=== PATIENT | female | born 1960 | race Caucasian/White ===

== ENCOUNTER 2018-10-28 09:19 | Emergency (ER) | payer SELFPAY ==
[~2018-10-28] VITALS: Ht 162.6 cm; Wt 68.0 kg
[~2018-10-28 09:19] MED LIST: COZAAR50 MG PO; SUPRAX400 MG PO; ULTRAM50 MG; Z.0.SERTRALINE HCL10 PO; Z.0.VALTREX500 MG PO
[2018-10-28 09:51] LABS: CLARITY,URINE HAZY (CLEAR); COLOR,URINE BROWN (YELLOW); LEUKOCYTE ESTERASE ,URINE 2+ (NEGATIVE); NITRITE,URINE POSITIVE (NEGATIVE); PROTEIN,URINE DIPSTICK 2+ (NEGATIVE)
[2018-10-28 09:52] LABS: BILIRUBIN,URINE NEGATIVE (NEGATIVE); KETONES,URINE NEGATIVE (NEGATIVE); URINE UROBILINOGEN 0.2 mg/dL (0.2 - 1)
[2018-10-28 10:00] LABS: BACTERIA,URINE FEW /HPF; EPITHELIAL CELLS,URINE RARE /LPF; RBC,URINE >50 /HPF (0-5)
[2018-10-28] MEDS ORDERED: CEFTRIAXONE SOD 1 GM/NS 50 ML 50 ML IV ONE (10:00)
[2018-10-28 10:36] LABS: BASOPHILS % 0.4 % (0.0-1.0); EOSINOPHILS # (AUTO) 0.1 (0.0-0.4); EOSINOPHILS % 1.1 % (0.0-6.0); HEMATOCRIT 35.4 % (34.2-44.1); HEMOGLOBIN 11.8 g/dL (12.0-16.0); LYMPHOCYTES # (AUTO) 1.6 (1.0-3.2); LYMPHOCYTES % 16.8 % (18.0-39.1); MEAN CORPUSCULAR HGB CONC 33.3 g/dL (31-35); MEAN CORPUSCULAR VOLUME 83.9 fL (81-99); MONOCYTES # (AUTO) 0.7 (0.2-0.8); MONOCYTES % 7.4 % (4.4-11.3); NEUTROPHILS # (AUTO) 7.2 (2.1-6.9); NEUTROPHILS % 73.9 % (38.7-80.0); PLATELET COUNT 136 x10e3/uL (140-360); RED BLOOD COUNT 4.22 x10e6/uL (3.6-5.1); RED CELL DISTRIBUTION WIDTH 13.1 % (11.7-14.4)
[2018-10-28 10:57] LABS: ALBUMIN 4.4 g/dL (3.5-5.0); ALBUMIN/GLOBULIN RATIO 1.7 (0.8-2.0); ANION GAP 15.2 mmol/L (8-16); CREATININE, SERUM 1.16 mg/dL (0.57-1.11); POTASSIUM 4.2 mmol/L (3.5-5.1)
[2018-10-28] MEDS ORDERED: MORPHINE SULFATE INJ 4 MG/ML INJ 1ML IV ONE (11:00)
[2018-10-28] MEDS ORDERED: ONDANSETRON HCL INJ 2MG/ML 2ML 2 MG/ML VIAL IV ONE (11:00)
--- NOTE | 2018-10-28 11:19 | NUR ---
WALKING ROUNDS WITH FERNANDEZ REYNA. REPORT RECEIVED. PATIENT CARE ASSUMED
--- NOTE | 2018-10-28 11:25 | Diagnostic Imaging Report ---
EXAMINATION: CT of the abdomen and pelvis without contrast. TECHNIQUE: Spiral CT images of the abdomen and pelvis were performed from the lung bases to the lesser trochanters. No intravenous contrast was given per renal stone protocol. Coronal and sagittal reformatted images were obtained. COMPARISON: None. CLINICAL HISTORY:Bilateral flank pain, hematuria. Patient also reports history of cholecystectomy and back surgery DISCUSSION: ABSENCE OF INTRAVENOUS CONTRAST DECREASES SENSITIVITY FOR DETECTION OF FOCAL LESIONS AND VASCULAR PATHOLOGY. ABDOMEN/PELVIS: LOWER THORAX: Patchy, rounded consolidation with surrounding groundglass opacity in the right lung base with adjacent calcification (series 3 image 11). Linear scar or fibrotic change/atelectasis in the lingula. HEPATOBILIARY:No focal hepatic lesion or intrahepatic biliary ductal dilatation. The gallbladder has been removed with metallic clips in the gallbladder fossa. SPLEEN: No splenomegaly. PANCREAS: No focal masses or ductal dilatation. ADRENALS: No adrenal nodules. KIDNEYS/URETERS: Punctate nonobstructing right upper pole renal calculus seen on series 3 image 45. 3 mm nonobstructing left upper pole renal calculus seen on series 3 image 46. Punctate nonobstructing left renal calculus seen on series 3 image 56. No hydronephrosis. No gross renal mass lesion. Subcentimeter left angiomyolipoma versus invagination of renal sinus fat. No ureteral or bladder calculi. PELVIC ORGANS/BLADDER: The urinary bladder is incompletely distended but otherwise unremarkable. The uterus is anteflexed and appears normal. No adnexal mass. PERITONEUM/RETROPERITONEUM: No ascites. No pneumoperitoneum. LYMPH NODES: No pelvic sidewall, retroperitoneal or mesenteric lymphadenopathy. VESSELS: Limited evaluation without intravenous contrast. Atherosclerotic calcification of the abdominal aorta and branch vessels without aneurysmal dilatation. GI TRACT: The large bowel is notable for scattered diverticula along the course of the descending and sigmoid colon without wall thickening or adjacent inflammatory change. The appendix is normal. The stomach is collapsed with prominence of the rugal folds. No small bowel dilatation to suggest obstruction. BONES AND SOFT TISSUES: Small fat-containing umbilical hernia. Otherwise no focal soft tissue abnormalities. No osseous destructive lesions. Multilevel degenerative disc changes and facet arthropathy of the lumbar spine. Postsurgical changes at L4. IMPRESSION: Punctate bilateral nonobstructing renal calculi. Large bowel diverticulosis without evidence of diverticulitis. Nodular consolidation and groundglass opacity in the right lower lobe is likely infectious or inflammatory in nature. A follow-up CT scan of the chest without contrast in 6-8 weeks is suggested to document resolution. Signed by: Dr. Farhat Fraga M.D. on 10/28/2018 11:22 AM
[2018-10-28] MEDS ORDERED: MACROBID 100 M100 MG PO (12:07)
[2018-10-28 12:34] VITALS: BP 128/81
== END 2018-10-28 12:40 | disposition home or self-care (01) ==
LOC: ER 09:19
DX: M54.5 Low back pain (principal); N30.91 Cystitis, unspecified with hematuria
CPT/HCPCS: 36415; 74176; 80053; 81001; 85025; 87086; 87186; 99284; J0696; J2270; J2405

== ENCOUNTER → 2025-07-12 | Day surgery (SDC) | payer BC, OTHER ==
[2025-07-10 10:41] LABS: BASOPHILS % 0.5 % (0.0-1.0); EOSINOPHILS % 2.3 % (0.0-6.0); LYMPHOCYTES % 28.1 % (18.0-39.1); MONOCYTES % 9.5 % (4.4-11.3); NEUTROPHILS % 59.3 % (38.7-80.0); RED CELL DISTRIBUTION WIDTH 13.4 % (11.7-14.4)
[2025-07-10 11:03] LABS: INR 0.99
[2025-07-10 11:07] LABS: EST GLOMERULAR FILTRATION RATE 53.0 ML/MIN (>=60)
[~2025-07-12] MED LIST changes: +BIOTIN1 MG; +BUDESONIDE0.5 MG/2 M NEB; +CRESTOR40 MG PO; +CYCLOBENZAPRINE10 MG PO; +FENTANYL CITRATE/PF 100MCG/2 ML INJ ONE; +LEVOTHYROXINE50 MCG PO; +LIDOCAINE HCL 2% LOCAL INJ 5 ML SDV VIAL INJ ONE; +MACROBID 100 M100 MG PO; +MAGNESIUM100 MG; +MELATONIN3 MG PO; +METOCLOPRAMIDE HCL 10 MG/2ML VIAL ONE; +MIDAZOLAM HCL 2 MG/2 ML VIAL ONE; +MOUNJARO2.5 MG/0.5; +MULTI-VITAMIN1 EACH PO; +NEURONTIN100 MG PO; +ONDANSETRON HCL INJ 2MG/ML 2ML 2 MG/ML VIAL ONE; +ONDANSETRON ODT8 MG PO; +PANTOPRAZOLE SO40 MG PO; +PERCOCET 10-321 EACH PO; +POTASSIUM99 M1; +PROPOFOL IV EMULSION 10 MG/ML 20 ML VIAL ONE; +PROPOFOL IV EMULSION 50 ML IV ONE; +SENSIPAR30 MG PO; +SPIRONOLACTONE25 MG PO
[2025-07-12] MEDS: LACTATED RINGER'S 1,000 ML ONE (09:35)
[2025-07-12 11:22] VITALS: TEMP 98.7
[2025-07-12 11:45] VITALS: BP 90/50; PULSE 88; RESP 18; O2SAT 99
== END | disposition home or self-care (01) ==
LOC: OR 08:33
PROVIDERS: ATTEND Internal Medicine Gastroenterology
DX: K31.7 Polyp of stomach and duodenum (principal); K31.89 Other diseases of stomach and duodenum; K21.00 Gastro-esophageal reflux disease with esophagitis, without bleeding; K44.9 Diaphragmatic hernia without obstruction or gangrene; K63.3 Ulcer of intestine; K64.8 Other hemorrhoids; Z86.0100 Personal history of colon polyps, unspecified; I12.9 Hypertensive chronic kidney disease with stage 1 through stage 4 chronic kidney disease, or unspecified chronic kidney disease; N18.30 Chronic kidney disease, stage 3 unspecified; E03.9 Hypothyroidism, unspecified; G89.29 Other chronic pain; Z90.49 Acquired absence of other specified parts of digestive tract; Z79.890 Hormone replacement therapy; Z79.85 Long-term (current) use of injectable non-insulin antidiabetic drugs; Z88.5 Allergy status to narcotic agent; Z88.6 Allergy status to analgesic agent; Z01.810 Encounter for preprocedural cardiovascular examination; Z01.812 Encounter for preprocedural laboratory examination
CPT/HCPCS: 36415; 43239; 43251; 45380; 80048; 85025; 85610; 85730; 93005; J2003; J2250; J2405; J2470; J2704 ×2; J2765; J3010; J7121; 45378

== ENCOUNTER 2025-07-14 10:37 | Emergency (ER) | payer BC, OTHER ==
[~2025-07-14] VITALS: Ht 162.6 cm; Wt 56.7 kg
[~2025-07-14 10:37] MED LIST changes: -FENTANYL CITRATE/PF 100MCG/2 ML INJ ONE; -LIDOCAINE HCL 2% LOCAL INJ 5 ML SDV VIAL INJ ONE; -METOCLOPRAMIDE HCL 10 MG/2ML VIAL ONE; -MIDAZOLAM HCL 2 MG/2 ML VIAL ONE; -ONDANSETRON HCL INJ 2MG/ML 2ML 2 MG/ML VIAL ONE; -PROPOFOL IV EMULSION 10 MG/ML 20 ML VIAL ONE; -PROPOFOL IV EMULSION 50 ML IV ONE
[2025-07-14 12:00] VITALS: PULSE 94; RESP 16; TEMP 98.5
[2025-07-14 13:08] LABS: BASOPHILS % 0.2 % (0.0-1.0); EOSINOPHILS % 0.5 % (0.0-6.0); LYMPHOCYTES % 13.9 % (18.0-39.1); MONOCYTES % 7.6 % (4.4-11.3); NEUTROPHILS % 77.5 % (38.7-80.0); RED CELL DISTRIBUTION WIDTH 13.1 % (11.7-14.4)
[2025-07-14 13:32] LABS: EST GLOMERULAR FILTRATION RATE 37.0 ML/MIN (>=60)
[2025-07-14 14:39] LABS: LEUKOCYTE ESTERASE ,URINE TRACE (NEGATIVE); PROTEIN,URINE DIPSTICK NEGATIVE (NEGATIVE); URINE UROBILINOGEN 0.2 mg/dL (0.2 - 1)
[2025-07-14] MEDS ORDERED: SODIUM CHLORIDE 0.9% 1000ML 1,000 ML ONE (14:51)
[2025-07-14 15:00] LABS: EPITHELIAL CELLS,URINE MANY /LPF; WBC,URINE (MAN) 0-5 /HPF (0-5)
[2025-07-14] MEDS: SODIUM CHLORIDE 0.9% 1000ML 1,000 ML IV STA (15:02)
[2025-07-14] MEDS ORDERED: IOPAMIDOL 370 MG/ML 100 ML INFUS..BTL INJ ONE (16:29)
[2025-07-14 16:59] VITALS: BP 106/68; PULSE 84; RESP 16; TEMP 98.8; O2SAT 100
== END 2025-07-14 16:15 | disposition home or self-care (01) ==
LOC: ER 10:44
DX: R50.9 Fever, unspecified (principal); I10 Essential (primary) hypertension; K21.9 Gastro-esophageal reflux disease without esophagitis; F32.A Depression, unspecified; Z87.442 Personal history of urinary calculi
CPT/HCPCS: 36415; 74177; 80053; 81001; 83690; 85025; 99284; J7030; Q9967